=== PATIENT | female | born 1960 | race Caucasian/White ===

== ENCOUNTER → 2016-04-13 | Outpatient (CLI) | payer OTHER ==
--- NOTE | 2016-04-13 11:35 | BD ---
EXAMINATION TYPE: MG DEXA axial skeleton. DATE OF EXAM: 04/13/2016 11:12 AM COMPARISON: NONE CLINICAL HISTORY: Postmenopausal female Height: 65 IN Weight: 127 LBS FRAX RISK QUESTIONS: Alcohol (3 or more units per day): NO Family History (Parent hip fracture): NO Glucocorticoids (More than 3mos): NO (Ex: prednisone, prednisolone, methylprednisolone, dexamethasone, and hydrocortisone). History of Fracture in Adulthood: NO Secondary Osteoporosis: 1. Type 1 Diabetes: NO 2. Hyperthyroidism: NO 3. Menopause before 45: YES AGE 43 4. Malnutrition: NO 5. Chronic liver disease: NO Rheumatoid Arthritis: NO Current Tobacco Use: YES RISK FACTORS HISTORY OF: Active: YES Diet low in dairy products/other sources of calcium: YES Postmenopausal woman: AGE 43 Take estrogen and/or progesterone medications: NOT NOW How long: CONTROL AGE 15 - 38 MEDICATIONS: Additional Medications: LISINIPRIL, EFFEXOR,FIBER, Additional History: BREAST CANCER WITH CHEMO EXAM MEASUREMENTS: Bone mineral densitometry was performed using the [employer] System. Bone mineral density as measured about the Lumbar spine is: ----- L1-L4(G/cm2): 0.984 T Score Values are as follows: ----- L2: -2.0 ----- L3: -1.6 ----- L4: -1.4 ----- L1-L4: -1.6 Bone mineral density has: Decreased -11.6% since study of: 07/21/2004 Bone mineral density about the R hip (g/cm2): 0.893 Bone mineral density about the L hip (g/cm2): 0.947 T Score values are as follows: -----R Neck: -1.0 -----L Neck: -0.7 -----R Intertrochanter: -2.0 -----L Intertrochanter: -2.1 Bone mineral density has: Decreased -15.7% since study of: 07/21/2004 IMPRESSION: Osteopenia (T Score between -2.5 and -1 as noted by T score values There is slightly increased risk of fracture and the patient may be considered for treatment. Re-Screen 1-2 years. NOTE: T-SCORE=SD OF THE YOUNG ADULT MEAN.
--- NOTE | 2016-04-13 13:40 | MM ---
Reason for exam: history of breast cancer, mastectomy. Last mammogram was performed 1 year and 9 months ago. History: Patient is postmenopausal and has history of breast cancer at age 39. Malignant excisional biopsy of the right breast, February 18, 2000. Silicone gel implants in both breasts, 2000. Core biopsy of the right breast. Mastectomy of the right breast. Chemotherapy. Took tamoxifen for 3 years 6 months beginning at age 39. Physical Findings: Nurse did not find any significant physical abnormalities on exam. MG 3D Diag Mammo W/Cad LT CC, MLO, and ID view(s) were taken of the left breast. Prior study comparison: July 17, 2014, left breast MG diagnostic mammo LT w CAD. March 12, 2013, left diagnostic mammogram w/CAD. November 23, 2010, left diagnostic mammogram w/CAD. There are scattered fibroglandular densities. No significant new findings when compared with previous films. These results were verbally communicated with the patient and result sheet given to the patient on 04/13/16. ASSESSMENT: Benign, BI-RAD 2 RECOMMENDATION: Follow-up diagnostic mammogram of the left breast in 1 year.
== END | disposition home or self-care (01) ==
LOC: RADMAMWWP 09:51
PROVIDERS: ATTEND Internal Medicine Hematology & Oncology
DX: M85.80 Other specified disorders of bone density and structure, unspecified site (principal); N95.1 Menopausal and female climacteric states; Z78.0 Asymptomatic menopausal state; Z85.3 Personal history of malignant neoplasm of breast
CPT/HCPCS: 77080; G0206; G0279

== ENCOUNTER → 2017-08-01 | Outpatient (CLI) | payer OTHER ==
--- NOTE | 2017-08-02 07:52 | MM ---
Reason for exam: additional evaluation requested from prior study. Last mammogram was performed 1 year and 4 months ago. History: Patient is postmenopausal and has history of breast cancer at age 39. Malignant excisional biopsy of the right breast, February 18, 2000. Silicone gel implants in both breasts, 2000. Core biopsy of the right breast. Mastectomy of the right breast. Chemotherapy. Took tamoxifen for 3 years 6 months beginning at age 39. Physical Findings: Nurse did not find any significant physical abnormalities on exam. MG 3D Diag Mammo Imp W/Cad LT CC, MLO, and ID view(s) were taken of the left breast. Prior study comparison: April 13, 2016, left breast MG 3d diag mammo imp w/cad LT. July 17, 2014, left breast MG diagnostic mammo LT w CAD. The breast tissue is heterogeneously dense. This may lower the sensitivity of mammography. Retropectoral silicone implant. No significant new findings when compared with previous films. These results were verbally communicated with the patient and result sheet given to the patient on 08/01/17. ASSESSMENT: Negative, BI-RAD 1 RECOMMENDATION: Follow-up diagnostic mammogram of the left breast in 1 year.
== END | disposition home or self-care (01) ==
LOC: RADMAMWWP 15:06
PROVIDERS: ATTEND Internal Medicine Hematology & Oncology
DX: Z08 Encounter for follow-up examination after completed treatment for malignant neoplasm (principal); Z85.3 Personal history of malignant neoplasm of breast
CPT/HCPCS: 77061; 77065

== ENCOUNTER → 2018-05-17 | Outpatient (CLI) | payer OTHER ==
--- NOTE | 2018-05-30 09:02 | HM ---
HOLTER MONITOR REPORT Patient in her diary did not have any significant symptoms of palpitations. She had some chest tightness, pressure and difficulty breathing. Heart rate ranged from 50 to 160 beats per minute with average heart rate of 82 beats per minute. Predominant rhythm appears to be atrial fibrillation with a variable rate with underlying IVCD-type picture. There was a lot of artifact noted. There is no evidence of any significant bradyarrhythmia. Isolated PVCs were also noted. There was also some occasional ventricular couplets noted as well. FINAL IMPRESSION: Predominant rhythm with atrial FIB with a average rate of 82 beats per minute but heart rate ranged from 50 to 160 beats per minute with isolated premature ventricular contractions and occasional couplets. No evidence of any wide QRS tachycardia. No evidence of any significant pauses. MMODL / IJN: [id number] /
== END ==
LOC: RADECHMAIN 12:02
PROVIDERS: ATTEND Family Medicine
DX: I48.91 Unspecified atrial fibrillation (principal); I49.3 Ventricular premature depolarization
CPT/HCPCS: 93225; 93226

== ENCOUNTER → 2018-12-28 | Outpatient (CLI) | payer OTHER ==
--- NOTE | 2018-12-28 11:58 | MM ---
Reason for exam: additional evaluation requested from abnormal screening. Last mammogram was performed 1 year and 5 months ago. History: Patient is postmenopausal and has history of breast cancer at age 39. Malignant excisional biopsy of the right breast, February 18, 2000. Silicone gel implants in both breasts, 2000. Core biopsy of the right breast. Mastectomy of the right breast. Chemotherapy. Took tamoxifen for 3 years 6 months beginning at age 39. Physical Findings: Nurse did not find any significant physical abnormalities on exam. MG 3D Diag Mammo Imp W/Cad LT CC, MLO, and ID view(s) were taken of the left breast. Prior study comparison: August 01, 2017, left breast MG 3d diag mammo imp w/cad LT. April 13, 2016, left breast MG 3d diag mammo imp w/cad LT. There are scattered fibroglandular densities. There is no discrete abnormality. Implant is intact. No significant new findings when compared with previous films. These results were verbally communicated with the patient and result sheet given to the patient on 12/28/18. ASSESSMENT: Negative, BI-RAD 1 RECOMMENDATION: Follow-up diagnostic mammogram of the left breast in 1 year.
--- NOTE | 2018-12-29 07:18 | BD ---
EXAMINATION TYPE: Axial Bone Density DATE OF EXAM: 12/28/2018 COMPARISON: 2017 CLINICAL HISTORY: N 95.1 Height: 5 FT 4IN Weight: 134 FRAX RISK QUESTIONS: History of Fracture in Adulthood: YES Secondary Osteoporosis: 3. Menopause before 45: YES Current Tobacco Use: QUIT 6 WEEKS AGO RISK FACTORS HISTORY OF: Active: YES Postmenopausal woman: AGE 43 CHEMO INDUCED MEDICATIONS: Additional Medications: METOPROLOL, LISINOPRIL, EFFEXOR, WARFARIN Additional History: PT HAD BREAST CANCER AGE CHEMO, IS HAVING OPEN HEART SURG. REPLACING MITRAL VALVE EXAM MEASUREMENTS: Bone mineral densitometry was performed using the [employer] System. Bone mineral density as measured about the Lumbar spine is: ----- L1-L4(G/cm2): 0.982 T Score Values are as follows: ----- L2: -1.7 ----- L3: -1.5 ----- L4: -2.0 ----- L1-L4: -1.6 Bone mineral density has: DECREASED -1.5 % since study of: 2016 Bone mineral density about the R hip (g/cm2): 0.868 Bone mineral density about the L hip (g/cm2): 0.890 T Score values are as follows: -----R Neck: -1.2 -----L Neck: -1.1 -----R Total: -1.8 -----L Total: -1.8 Bone mineral density has: DECREASED -4.0 % since study of: 2016 IMPRESSION: Osteopenia (T Score between -2.5 and -1). There is slightly increased risk of fracture and the patient may be considered for treatment. Re-Screen 2-5 years. NOTE: T-SCORE=SD OF THE YOUNG ADULT MEAN.
== END | disposition home or self-care (01) ==
LOC: RADMAMWWP 10:25
PROVIDERS: ATTEND Internal Medicine Hematology & Oncology
DX: Z08 Encounter for follow-up examination after completed treatment for malignant neoplasm (principal); M85.88 Other specified disorders of bone density and structure, other site; Z78.0 Asymptomatic menopausal state; Z85.3 Personal history of malignant neoplasm of breast
CPT/HCPCS: 77061; 77065; 77080

== ENCOUNTER → 2022-07-08 | Outpatient (CLI) | payer OTHER ==
--- NOTE | 2022-07-08 20:05 | BD ---
EXAMINATION TYPE: Axial Bone Density DATE OF EXAM: 07/08/2022 CLINICAL HISTORY: 62 years old Female. ICD-10 CODE: Z13.820 SCREENING FOR OSTEOPOROSIS Nuclear Medicine Study in the last 2 weeks: No Barium Study in the last week: No : No Height: 65" Weight: 125.8 lbs FRAX RISK QUESTIONS: Alcohol (3 or more units per day): No Family History (Parent hip fracture): No Glucocorticoids (More than 3mos): No (Ex: prednisone, prednisolone, methylprednisolone, dexamethasone, and hydrocortisone). History of Fracture in Adulthood: Right little toe, right rib Secondary Osteoporosis: 1. Type 1 Diabetes: No 2. Hyperthyroidism: No 3. Menopause before 45: Yes, 38 4. Malnutrition: No 5. Chronic liver disease: No Rheumatoid Arthritis: No Current Tobacco Use: No RISK FACTORS HISTORY OF: Hip Fracture (Right/Left): No Spine Fracture: No History of Wrist Fracture: No Surgery to Spine/Hip(right/left)/Wrist (right/left): No Family History of Osteoporosis: No Active: Yes Diet low in dairy products/other sources of calcium: No Postmenopausal woman: No Lost more than 2 inches in height since high school: No Frequent falls: No Poor Health: No Hyperparathyroidism: No Adrenal Insufficiency: No MEDICATIONS: Prednisone or other steroids: No Thyroid Medications: No Osteoporosis Medications: No Additional Medications: Fiber gummies, baby aspirin, lisinopril, heart/blood pressure meds, Effexor, vitamin D Additional History: Hx of breast cancer 2000, open heart sx 2003, hysterectomy 2004 EXAM MEASUREMENTS: Bone mineral densitometry was performed using the [employer] System. Bone mineral density as measured about the Lumbar spine is: ----- L1-L4(G/cm2): 0.899 T Score Values are as follows: ----- L1: -2.6 ----- L2: -2.9 ----- L3: -2.4 ----- L4: -1.6 ----- L1-L4: -2.3 Z Score Values are as follows: ----- L1: -1.1 ----- L2: -1.4 ----- L3: -1.0 ----- L4: -0.2 ----- L1-L4: -0.9 Bone mineral density has: decreased -8.5% since study of: 12/28/2018 Bone mineral density about the R hip (g/cm2): 0.744 Bone mineral density about the L hip (g/cm2): 0.782 T Score values are as follows: -----R Neck: -1.6 -----L Neck: -1.0 -----R Total: -2.1 -----L Total: -1.8 Z Score values are as follows: -----R Neck: -0.2 -----L Neck: 0.4 -----R Total: -1.0 -----L Total: -0.7 Bone mineral density has: decreased -1.9% since study of: 12/28/2018 FRAX%s: The graph provided illustrates a 13.0% chance for a major osteoporotic fx and a 1.4% chance f or the hips probability for fx in 10 years time. IMPRESSION: Osteopenia (T Score between -2.5 and -1). There is slightly increased risk of fracture and the patient may be considered for treatment. Re-Screen 2-5 years. NOTE: T-SCORE=SD OF THE YOUNG ADULT MEAN.
--- NOTE | 2022-07-09 19:14 | MM ---
Reason for Exam: Hx of breast augmentation, asymptomatic. Last mammogram was performed 3 year(s) and 6 month(s) ago. Patient History: Menarche at age 15. First Full-Term at age 31. Left ovary removed at age 44. Right ovary removed at age 44. Hysterectomy at age 44. Postmenopausal. Breast cancer, age 39. Previous chemotherapy at age 39. Tamoxifen for 3 years, 6 months, from age 39 until age 43. Mastectomy on the Right side. Core Biopsy on the Right side. 02/18/2000, Malignant Excisional Biopsy on the right side. Chemotherapy. 2000, Bilateral Implants. Prior Study Comparison: 04/13/2016 Left Diagnostic Mammogram, [facility]. 08/01/2017 Left Diagnostic Mammogram, [facility]. 12/28/2018 Left Diagnostic Mammogram, [facility]. Tissue Density: There are scattered fibroglandular densities. Findings: Analyzed By CAD. Retropectoral silicone implant is noted. There is no suspicious group of microcalcifications or new suspicious mass in either breast. Overall Assessment: Negative, BI-RAD 1 Management: Screening Mammogram of the left breast in 1 year. . Patient should continue monthly self-breast exams. A clinical breast exam by your physician is recommended on an annual basis. This exam should not preclude additional follow-up of suspicious palpable abnormalities. Note on Francine scores and lifetime risk: 1. A Francine score greater than 3% is considered moderate risk. If this is the case, consider specialist referral to assess eligibility for a risk reducing agent. 2. If overall lifetime risk for the development of breast cancer is 20% or higher, the patient may qualify for future screening with alternating mammogram and breast MRI. Electronically signed and approved by: Emperatriz Barrera M.D. Radiologist
== END | disposition home or self-care (01) ==
LOC: RADMAMWWP 12:34
PROVIDERS: ATTEND Obstetrics & Gynecology
DX: Z12.31 Encounter for screening mammogram for malignant neoplasm of breast (principal); Z13.820 Encounter for screening for osteoporosis; M81.0 Age-related osteoporosis without current pathological fracture; M85.89 Other specified disorders of bone density and structure, multiple sites; Z85.3 Personal history of malignant neoplasm of breast
CPT/HCPCS: 77063; 77067; 77080

== ENCOUNTER → 2024-03-14 | Outpatient (CLI) | payer OTHER ==
--- NOTE | 2024-03-14 13:49 | CTL ---
EXAMINATION TYPE: CT Low Dose Lung DATE OF EXAM ORDERED: 03/14/2024 COMPARISON: None CLINICAL INDICATION: Female, 63 years old with history of Z12.2 SCR LUNG CA F17.210 CURRENT SMOKER Z1 2.31; [facility], former smoker, quit 5 years ago. smoked 1 PPD x30 years, Lung cancer screening, History of Smoking/tobacco use. TECHNIQUE: Low dose computed tomography scan was performed through the chest at 1 mm thick sections a nd reconstructed images in multiple planes at 1 mm and [address] DLP: 65.[address] CTDI: 1.8 mGy Automated exposure control for dose reduction was used. CT DIAGNOSTIC QUALITY: Satisfactory EXAMINATION TYPE: CT Low Dose Lung DATE OF EXAM ORDERED: 03/14/2024 HISTORY: Lung cancer screening CT DLP: 65.[address] CTDI: 1.8 mGy Automated exposure control for dose reduction was used. Comparison: None TECHNIQUE: Low dose computed tomography scan was performed through the chest at 1 mm thick sections a nd reconstructed images in multiple planes at 1 mm and [address] DIAGNOSTIC QUALITY: Satisfactory FINDINGS: There are mild emphysematous changes. There are scattered subcentimeter 3 mm nodules. There is no lung consolidation. There is mild interst itial density in the lingula indicating chronic interstitial changes. There is marked cardiomegaly. There is no mediastinal, hilar or axillary adenopathy. There is no pleural effusion, pleural thickening or pneumothorax. No focal osseous lesions are seen. Limited scans the upper abdomen reveals no gross abnormality IMPRESSION: 1. Lung rads Category 3, likely benign. Follow-up CT thorax in 6 months is recommended to confirm sta bility. 2. No acute cardiopulmonary disease. 3. Mild emphysematous changes. 4. Marked cardiomegaly. [facility], , 03/14/2024 1:47 PM
--- NOTE | 2024-03-14 14:58 | MM ---
Reason for Exam: Screening (asymptomatic). Last mammogram was performed 1 year(s) and 8 month(s) ago. Patient History: Menarche at age 15. First Full-Term at age 31. Left ovary removed at age 44. Right ovary removed at age 44. Hysterectomy at age 44. Postmenopausal. Breast cancer, right, age 39. Previous chemotherapy at age 39. Tamoxifen for 3 years, 6 months, from age 39 until age 43. Mastectomy on the Right side. Core Biopsy on the Right side. 02/18/2000, Malignant Excisional Biopsy on the right side. Chemotherapy. 2023, Implant on the left side. 2000, Bilateral Implants. Prior Study Comparison: 08/01/2017 Left Diagnostic Mammogram, [facility]. 12/28/2018 Left Diagnostic Mammogram, [facility]. 07/08/2022 Bilateral MG 3D screen mammo imp/cad., [facility]. Tissue Density: There are scattered areas of fibroglandular density. Findings: Analyzed By CAD. Left breast implants appear intact. Left breast: There is no suspicious group of microcalcifications or new suspicious mass. Overall Assessment: Negative, BI-RAD 1 Management: Screening Mammogram of both breasts in [address] [facility] will attempt to contact patient to return for supplemental views and ultrasound if indicated. Patient should continue monthly self-breast exams. A clinical breast exam by your physician is recommended on an annual basis. This exam should not preclude additional follow-up of suspicious palpable abnormalities. Note on Francine scores and lifetime risk: 1. A Francine score greater than 3% is considered moderate risk. If this is the case, consider specialist referral to assess eligibility for a risk reducing agent. 2. If overall lifetime risk for the development of breast cancer is 20% or higher, the patient may qualify for future screening with alternating mammogram and breast MRI. [facility], , 03/14/2024 2:55 PM. Electronically signed and approved by: Claude Coulter DO
== END | disposition home or self-care (01) ==
LOC: RADCTMAIN 11:13
PROVIDERS: ATTEND Family Medicine
DX: Z12.31 Encounter for screening mammogram for malignant neoplasm of breast (principal); Z12.2 Encounter for screening for malignant neoplasm of respiratory organs; J43.9 Emphysema, unspecified; R92.323 Mammographic fibroglandular density, bilateral breasts; I51.7 Cardiomegaly; Z98.82 Breast implant status; Z78.0 Asymptomatic menopausal state; Z85.3 Personal history of malignant neoplasm of breast; Z87.891 Personal history of nicotine dependence
CPT/HCPCS: 71271; 77063; 77067

== ENCOUNTER → 2024-04-25 | Outpatient (CLI) | payer OTHER ==
--- NOTE | 2024-04-25 08:38 | US ---
EXAMINATION TYPE: US carotid duplex BILAT DATE OF EXAM: 04/25/2024 COMPARISON: NONE CLINICAL INDICATION: Female, 63 years old with history of R47.1 DYSARTHRIA AND ANARTHRIA; dizziness Additional History: R42* Dizziness TECHNIQUE: Grayscale, color Doppler and spectral Doppler evaluation of the bilateral carotid systems and vertebral arteries. Indirect Doppler criteria was utilized. FINDINGS: EXAM MEASUREMENTS: RIGHT: Peak Systolic Velocity (PSV) cm/sec ----- Right CCA: 99.8 ----- Right ICA: 84.4 ----- Right ECA: 91.2 ICA/CCA ratio: 0.85 RIGHT: End Diastole cm/sec ----- Right CCA: 31.6 ----- Right ICA: 34.4 ----- Right ECA: 16.1 LEFT: Peak Systolic Velocity (PSV) cm/sec ----- Left CCA: 103 ----- Left ICA: 98.7 ----- Left ECA: 57.8 ICA/CCA ratio: 0.96 LEFT: End Diastole cm/sec ----- Left CCA: 38.3 ----- Left ICA: 31.2 ----- Left ECA: 10.1 VERTEBRALS (direction of flow): Right Vertebral: Antegrade Left Vertebral: Antegrade Rhythm: Normal DISC PAD GRINDER NOTES: Mild plaque bilateral bifurcations. no evidence of increased velocities Color Doppler imaging shows patency with blood flow throughout the carotid artery. Spectral waveforms are within normal limits. IMPRESSION: Right: Less than 50% stenosis of the carotid bifurcation. Left: Less than 50% stenosis of the carotid bifurcation. Criteria for Assigning % of Stenosis / Diameter reduction (Estimation based on the indirect measurements of the internal carotid artery velocities (ICA PSV). 1. Normal (no stenosis)=ICA PSV < 125 cm/s: ratio < 2.0: ICA EDV<40 cm/s. 2. Less than 50% stenosis=ICA PSV < 125 cm/s: ratio < 2.0: ICA EDV<40 cm/s. 3. 50 to 69% stenosis=ICA PSV of 125 to 230 cm/s: ration 2.0 ? 4.0: ICA EDV 40-100 cm/s. 4. Greater than 70% stenosis to near occlusion= ICA PSV > 230 cm/s: ratio > 4.0: ICA EDV > 100 cm/s. 5. Near occlusion= ICA PSV velocities may be low or undetectable: variable ratio and ICA EDV. 6. Total occlusion=unable to detect flow. [facility], , 04/25/2024 8:35 AM
== END | disposition home or self-care (01) ==
LOC: RADUSWWP 07:43
PROVIDERS: ATTEND Family Medicine
DX: I65.23 Occlusion and stenosis of bilateral carotid arteries (principal); R47.1 Dysarthria and anarthria
CPT/HCPCS: 93880

== ENCOUNTER 2024-05-03 16:36 | Observation (INO) | payer OTHER ==
[2024-05-03] MEDS ORDERED: NICOTINE GUM (POLACRILEX) 2 MG GUM BUCCAL PRN (18:00)
[2024-05-03 18:19] LABS: Basophils % (A) 0 %; Eosinophils # (A) 0.2 k/uL (0-0.7); Eosinophils % (A) 2 %; HCT 36.3 % (34.0-46.0); HGB 11.7 gm/dL (11.4-16.0); Lymphocytes # (A) 0.9 k/uL (1.0-4.8); Lymphocytes % (A) 8 %; MCH 30.8 pg (25.0-35.0); MCHC 32.2 g/dL (31.0-37.0); MCV 95.8 fL (80.0-100.0); Mean Platelet Volume 6.9; Monocytes # (A) 0.2 k/uL (0-1.0); Monocytes % (A) 2 %; Neutrophils # (A) 10.4 k/uL (1.3-7.7); Neutrophils % (A) 88 %; Platelet Count 223 k/uL (150-450); RBC 3.79 m/uL (3.80-5.40); RDW 13.2 % (11.5-15.5); WBC 11.8 k/uL (3.8-10.6)
[2024-05-03 18:29] LABS: ALT 55 U/L (4-34); AST 71 U/L (14-36); African American GFR (CKD) >90 (>60 ml/min/1.73 sqM); Alcohol <10 mg/dL; Alkaline Phosphatase 71 U/L (38-126); Anion Gap 9 mmol/L; Blood Urea Nitrogen 22 mg/dL (7-17); Calcium 8.8 mg/dL (8.4-10.2); Carbon Dioxide 23 mmol/L (22-30); Chloride 102 mmol/L (98-107); Glucose 83 mg/dL (74-99); Non-African American GFR(CKD) 80 (>60 ml/min/1.73 sqM); Potassium 4.3 mmol/L (3.5-5.1); Sodium 134 mmol/L (137-145); Total Bilirubin 0.7 mg/dL (0.2-1.3); Total Protein 6.5 g/dL (6.3-8.2)
[2024-05-03 18:29] LABS: Glucose,Whole Blood 81 mg/dL (70-110)
[2024-05-03] MEDS: SODIUM CHLORIDE 0.9% 500 ML 500 ML IV ONE (18:29)
[2024-05-03 18:31] LABS: Partial Thromboplastin Time 23.7 sec (22.0-30.0); Prothrombin Time 10.9 sec (10.0-12.5)
--- NOTE | 2024-05-03 18:57 | XR ---
EXAMINATION TYPE: XR chest 2V DATE OF EXAM: 05/03/2024 6:46 PM COMPARISON: 02/13/2013 CLINICAL INDICATION: Female, 63 years old with history of altered mental status: Shortness of breath TECHNIQUE: XR chest 2V views of the chest are obtained. FINDINGS: Scattered senescent parenchymal changes noted. Hyperinflation compatible with COPD. No evidence for infiltrate. No evidence for atelectasis. Cardiomegaly. Mediastinal structures are stable and grossly unremarkable. No evidence for hilar prominence. Degenerative changes dorsal spine. IMPRESSION: 1. No evidence for acute pulmonary disease. [facility], , 05/03/2024 6:54 PM
[2024-05-03 19:51] LABS: Appearance,Urine Clear (Clear); Bilirubin,Urine Negative (Negative); Blood,Urine Trace (Negative); Color,Urine Colorless; Glucose,Urine (UA) 4+ (Negative); Ketones,Urine Trace (Negative); Leukocyte Esterase,Urine Negative (Negative); Mucus,Urine Rare /hpf; Nitrite,Urine Negative (Negative); Protein,Urine Negative (Negative); RBC,Urine <1 /hpf (0-5); Specific Gravity,Urine 1.021 (1.001-1.035); Squamous Epithelial Cell,Urine 3 /hpf (0-4); Urobilinogen,Urine <2.0 mg/dL (<2.0); WBC,Urine 1 /hpf (0-5)
[2024-05-03 20:01] LABS: Amphetamine Screen,Urine Not Detected (NotDetected); Barbiturate Screen,Urine Not Detected (NotDetected); Benzodiazepines Screen,Urine Not Detected (NotDetected); Cocaine Screen,Urine Not Detected (NotDetected); Methadone Screen, Urine Not Detected (NotDetected); Opiate Screen,Urine Not Detected (NotDetected); Oxycodone Screen, Urine Not Detected (NotDetected); Phencyclidine Screen,Urine Not Detected (NotDetected); Tricyclic Antidepressant,Urine Not Detected (NotDetected); Urn Cannabinoid Scrn Detected (NotDetected)
--- NOTE | 2024-05-03 20:48 | ED ---
Altered Mental Status HPI - General Chief Complaint: Altered Mental Status Stated Complaint: AMS Time Seen by Provider: 05/03/24 16:44 Source: EMS Mode of arrival: EMS - History of Present Illness Initial Comments: 63-year-old female with past medical history of A-fib, heart failure, breast cancer in the remote past who presents to the emergency department with an epis ode of altered mental status. Her family is at bedside and helps provide the history. States that today the patient had a 1.5-hour period where she was extremely confused. Patient states that she does remember speaking to her however does not remember much after this. She does not remember EMS coming to the house. reports that she had expressive aphasia to where she was nonsensical. Upon my evaluation the patient is alert and oriented. Denies any complaints at this time. Admits that she does not remember what happened over a several hour time span. Also admits that this is the fourth time that this has happened in the past couple of weeks. She denies history of stroke. Admits to mild headache. No fevers. No head injuries. Patient does take Xarelto and has been compliant with her medication. She denies any chest pain. No other alleviating, precipitating or modifying factors - Related Data Home Medications Medication Instructions Recorded Confirmed Calcium Carbonate [Calcium] 600 mg PO HS 05/03/24 05/03/24 Empagliflozin [Jardiance] 10 mg PO DAILY 05/03/24 05/03/24 Inulin/Chromium Picolinate [Fiber 1 tab PO DAILY 05/03/24 05/03/24 Gummies Chew] Rivaroxaban [Xarelto] 15 mg PO HS 05/03/24 05/03/24 Sacubitril/Valsartan [Entresto 24 1 tab PO BID 05/03/24 05/03/24 mg-26 mg Tablet] Sotalol [Betapace] 80 mg PO BID 05/03/24 05/03/24 Spironolactone [Aldactone] 25 mg PO DAILY 05/03/24 05/03/24 Venlafaxine HCl [Effexor XR] 75 mg PO DAILY 05/03/24 05/03/24 Allergies Allergy/AdvReac Type Severity Reaction Status Date / Time acetaminophen AdvReac Unknown Verified 05/03/24 19:42 [From Darvocet-N] ibuprofen AdvReac Nausea & Verified 05/03/24 19:42 Vomiting propoxyphene AdvReac Unknown Verified 05/03/24 19:42 [From Dane-N] Review of Systems ROS Statement: Those systems with pertinent positive or pertinent negative responses have been documented in the HPI. ROS Other: All systems not noted in ROS Statement are negative. Past Medical History Past Medical History: Atrial Fibrillation Additional Past Medical History / Comment(s): Breast cancer, open heart, and defibrillator History of Any Multi-Drug Resistant Organisms: None Reported Past Surgical History: Hysterectomy Additional Past Surgical History / Comment(s): Open heart surgery Past Psychological History: No Psychological Hx Reported Smoking Status: Vaper Past Alcohol Use History: Occasional Past Drug Use History: Marijuana General Exam General appearance: alert, in no apparent distress Head exam: Present: atraumatic, normocephalic, normal inspection Eye exam: Present: normal appearance, PERRL, EOMI. Absent: scleral icterus, conjunctival injection, periorbital swelling ENT exam: Present: normal exam, mucous membranes moist Neck exam: Present: normal inspection. Absent: tenderness, meningismus, lymphad enopathy Respiratory exam: Present: normal lung sounds bilaterally. Absent: respiratory distress, wheezes, rales, rhonchi, stridor Cardiovascular Exam: Present: regular rate, normal rhythm, normal heart sounds. Absent: systolic murmur, diastolic murmur, rubs, gallop, clicks GI/Abdominal exam: Present: soft, normal bowel sounds. Absent: distended, tenderness, guarding, rebound, rigid Extremities exam: Present: normal inspection, full ROM, normal capillary refill. Absent: tenderness, pedal edema, joint swelling, calf tenderness Back exam: Present: normal inspection Neurological exam: Present: alert, oriented X3, CN II-XII intact Psychiatric exam: Present: normal affect, normal mood Skin exam: Present: warm, dry, intact, normal color. Absent: rash Course Vital Signs 05/03/24 05/03/24 05/03/24 16:39 18:33 20:05 Temperature 98.8 F 98.4 F Pulse Rate 78 77 77 Respiratory 18 18 16 Rate Blood Pressure 98/67 114/72 105/68 O2 Sat by Pulse 97 99 99 Oximetry Medical Decision Making - Medical Decision Making Was pt. sent in by a medical professional or institution (Dr., PA, BONDING SUPERVISOR, urgent care, hospital, or penitentiary...) When possible be specific @ -No Did you speak to anyone other than the patient for history (EMS, parent, family, police, friend...)? What history was obtained from this source @ -Spoke with EMS and family for history Did you review nursing and triage notes (agree or disagree)? Why? @ -I reviewed and agree with nursing and triage notes Were old charts reviewed (outside hosp., previous admission, EMS record, old EKG, old radiological studies, urgent care reports/EKG's, penitentiary records)? Report findings @ -No old charts were reviewed Differential Diagnosis (chest pain, altered mental status, abdominal pain women, abdominal pain men, vaginal bleeding, weakness, fever, dyspnea, syncope, headache, dizziness, GI bleed, back pain, seizure, CVA, palpatations, mental health, musculoskeletal)? @ -Differential Altered Mental Status: Hypoglycemia, DKA, hypercapnia, ETOH, overdose, CO poisoning, trauma, myxedema coma, HTN encephalopathy, infection, encephalitis, psychosis, intercranial hemorrhage, hepatic encephalopathy, meningitis, CVA, this is not meant to be an all-inclusive list EKG interpreted by me (3pts min.). @ -Yes and demonstrates sinus rhythm with a rate of 76. QRS 123. QTc of 444. No acute ST segment elevations. Mild ST depression V4 through V6 X-rays interpreted by me (1pt min.). @ -Yes and demonstrates no acute process CT interpreted by me (1pt min.). @ -Yes and demonstrates no acute process U/S interpreted by me (1pt. min.). @ -None done What testing was considered but not performed or refused? (CT, X-rays, U/S, labs)? Why? @ -None What meds were considered but not given or refused? Why? @ -None Did you discuss the management of the patient with other professionals (professionals i.e. BRYCE Martinez, BONDING SUPERVISOR, lab, RT, psych nurse, social human services assistants, duty engineer, teacher, first officer and flight instructor, case management social worker)? Give summary @ -Spoke with Dr. Rachel for the admission Was smoking cessation discussed for >3mins.? @ -No Was critical care preformed (if so, how long)? @ -No Were there social determinants of health that impacted care today? How? (Homelessness, low income, unemployed, alcoholism, drug addiction, trans portation, low edu. Level, literacy, decrease access to med. care, snf, rehab)? @ -No Was there de-escalation of care discussed even if they declined (Discuss DNR or withdrawal of care, Hospice)? DNR status @ -No What co-morbidities impacted this encounter? (DM, HTN, Smoking, COPD, CAD, Cancer, CVA, ARF, Chemo, Hep., AIDS, mental health diagnosis, sleep apnea, morbid obesity)? @ -Breast cancer, A-fib, mitral valve replacement Was patient admitted / discharged? Hospital course, mention meds given and route, prescriptions, significant lab abnormalities, going to OR and other pertinent info. @ -Upon arrival patient seen and evaluated in hallway 11. Thorough history and physical exam was performed. IV access was established and laboratory studies are conducted. Patient has complete return back to her baseline and therefore code stroke was not activated. Laboratory studies are reviewed. Patient does go for CT and CTA. Results are discussed with the patient. I did recommend admission as the patient has had 4 episodes similar in nature. I ordered an EEG echo. Spoke with Dr. Rachel for the admission. Neurology will be placed on consult Undiagnosed new problem with uncertain prognosis? @ -No Drug Therapy requiring intensive monitoring for toxicity (Heparin, Nitro, Insulin, Cardizem)? @ -No Were any procedures done? @ -No Diagnosis/symptom? @ -Acute transient encephalopathy, possible TIA Acute, or Chronic, or Acute on Chronic? @ -Acute Uncomplicated (without systemic symptoms) or Complicated (systemic symptoms)? @ -Complicated Side effects of treatment? @ -No Exacerbation, Progression, or Severe Exacerbation? @ -No Poses a threat to life or bodily function? How? (Chest pain, USA, SC, pneumonia, PE, COPD, DKA, ARF, appy, cholecystitis, CVA, Diverticulitis, Homicidal, Suicidal, threat to staff... and all critical care pts) @ -No - Lab Data Result diagrams: 05/03/24 18:07 05/03/24 18:07 Lab Results 05/03/24 05/03/24 05/03/24 Range/Units 18:07 18:07 18:07 WBC 11.8 H (3.8-10.6) k/uL RBC 3.79 L (3.80-5.40) m/uL Hgb 11.7 (11.4-16.0) gm/dL Hct 36.3 (34.0-46.0) % MCV 95.8 (80.0-100.0) fL MCH 30.8 (25.0-35.0) pg MCHC 32.2 (31.0-37.0) g/dL RDW 13.2 (11.5-15.5) % Plt Count 223 (150-450) k/uL MPV 6.9 Neutrophils % 88 % Lymphocytes % 8 % Monocytes % 2 % Eosinophils % 2 % Basophils % 0 % Neutrophils # 10.4 H (1.3-7.7) k/uL Lymphocytes # 0.9 L (1.0-4.8) k/uL Monocytes # 0.2 (0-1.0) k/uL Eosinophils # 0.2 (0-0.7) k/uL Basophils # 0.0 (0-0.2) k/uL PT 10.9 (10.0-12.5) sec INR 1.0 (<1.2) APTT 23.7 (22.0-30.0) sec Sodium 134 L (137-145) mmol/L Potassium 4.3 (3.5-5.1) mmol/L Chloride 102 (98-107) mmol/L Carbon Dioxide 23 (22-30) mmol/L Anion Gap 9 mmol/L BUN 22 H (7-17) mg/dL Creatinine 0.80 (0.52-1.04) mg/dL Est GFR (CKD-EPI)AfAm >90 (>60 ml/min/1.73 sqM) Est GFR (CKD-EPI)NonAf 80 (>60 ml/min/1.73 sqM) Glucose 83 (74-99) mg/dL POC Glucose (mg/dL) (70-110) mg/dL POC Glu Accounting Office Manager ID Calcium 8.8 (8.4-10.2) mg/dL Total Bilirubin 0.7 (0.2-1.3) mg/dL AST 71 H (14-36) U/L ALT 55 H (4-34) U/L Alkaline Phosphatase 71 (38-126) U/L Ammonia (<30) umol/L Troponin I (0.000-0.034) ng/mL Total Protein 6.5 (6.3-8.2) g/dL Albumin 4.0 (3.5-5.0) g/dL Urine Color Urine Appearance (Clear) Urine pH (5.0-8.0) Ur Specific [place] (1.001-1.035) Urine Protein (Negative) Urine Glucose (UA) (Negative) Urine Ketones (Negative) Urine Blood (Negative) Urine Nitrite (Negative) Urine Bilirubin (Negative) Urine Urobilinogen (<2.0) mg/dL Ur Leukocyte Esterase (Negative) Urine RBC (0-5) /hpf Urine WBC (0-5) /hpf Ur Squamous Epith Cells (0-4) /hpf Urine Mucus (None) /hpf Urine Opiates Screen (NotDetected) Ur Oxycodone Screen (NotDetected) Urine Methadone Screen (NotDetected) Ur Barbiturates Screen (NotDetected) U Tricyclic Antidepress (NotDetected) Ur Phencyclidine Scrn (NotDetected) Ur Amphetamines Screen (NotDetected) U Methamphetamines Scrn (NotDetected) U Benzodiazepines Scrn (NotDetected) Urine Cocaine Screen (NotDetected) U Marijuana (THC) Screen (NotDetected) Serum Alcohol <10 mg/dL 05/03/24 05/03/24 05/03/24 Range/Units 18:07 18:07 18:27 WBC (3.8-10.6) k/uL RBC (3.80-5.40) m/uL Hgb (11.4-16.0) gm/dL Hct (34.0-46.0) % MCV (80.0-100.0) fL MCH (25.0-35.0) pg MCHC (31.0-37.0) g/dL RDW (11.5-15.5) % Plt Count (150-450) k/uL MPV Neutrophils % % Lymphocytes % % Monocytes % % Eosinophils % % Basophils % % Neutrophils # (1.3-7.7) k/uL Lymphocytes # (1.0-4.8) k/uL Monocytes # (0-1.0) k/uL Eosinophils # (0-0.7) k/uL Basophils # (0-0.2) k/uL PT (10.0-12.5) sec INR (<1.2) APTT (22.0-30.0) sec Sodium (137-145) mmol/L Potassium (3.5-5.1) mmol/L Chloride (98-107) mmol/L Carbon Dioxide (22-30) mmol/L Anion Gap mmol/L BUN (7-17) mg/dL Creatinine (0.52-1.04) mg/dL Est GFR (CKD-EPI)AfAm (>60 ml/min/1.73 sqM) Est GFR (CKD-EPI)NonAf (>60 ml/min/1.73 sqM) Glucose (74-99) mg/dL POC Glucose (mg/dL) 81 (70-110) mg/dL POC Glu Accounting Office Manager ID Marty Stout Calcium (8.4-10.2) mg/dL Total Bilirubin (0.2-1.3) mg/dL AST (14-36) U/L ALT (4-34) U/L Alkaline Phosphatase (38-126) U/L Ammonia <9 (<30) umol/L Troponin I <0.012 (0.000-0.034) ng/mL Total Protein (6.3-8.2) g/dL Albumin (3.5-5.0) g/dL Urine Color Urine Appearance (Clear) Urine pH (5.0-8.0) Ur Specific [place] (1.001-1.035) Urine Protein (Negative) Urine Glucose (UA) (Negative) Urine Ketones (Negative) Urine Blood (Negative) Urine Nitrite (Negative) Urine Bilirubin (Negative) Urine Urobilinogen (<2.0) mg/dL Ur Leukocyte Esterase (Negative) Urine RBC (0-5) /hpf Urine WBC (0-5) /hpf Ur Squamous Epith Cells (0-4) /hpf Urine Mucus (None) /hpf Urine Opiates Screen (NotDetected) Ur Oxycodone Screen (NotDetected) Urine Methadone Screen (NotDetected) Ur Barbiturates Screen (NotDetected) U Tricyclic Antidepress (NotDetected) Ur Phencyclidine Scrn (NotDetected) Ur Amphetamines Screen (NotDetected) U Methamphetamines Scrn (NotDetected) U Benzodiazepines Scrn (NotDetected) Urine Cocaine Screen (NotDetected) U Marijuana (THC) Screen (NotDetected) Serum Alcohol mg/dL 05/03/24 Range/Units 19:25 WBC (3.8-10.6) k/uL RBC (3.80-5.40) m/uL Hgb (11.4-16.0) gm/dL Hct (34.0-46.0) % MCV (80.0-100.0) fL MCH (25.0-35.0) pg MCHC (31.0-37.0) g/dL RDW (11.5-15.5) % Plt Count (150-450) k/uL MPV Neutrophils % % Lymphocytes % % Monocytes % % Eosinophils % % Basophils % % Neutrophils # (1.3-7.7) k/uL Lymphocytes # (1.0-4.8) k/uL Monocytes # (0-1.0) k/uL Eosinophils # (0-0.7) k/uL Basophils # (0-0.2) k/uL PT (10.0-12.5) sec INR (<1.2) APTT (22.0-30.0) sec Sodium (137-145) mmol/L Potassium (3.5-5.1) mmol/L Chloride (98-107) mmol/L Carbon Dioxide (22-30) mmol/L Anion Gap mmol/L BUN (7-17) mg/dL Creatinine (0.52-1.04) mg/dL Est GFR (CKD-EPI)AfAm (>60 ml/min/1.73 sqM) Est GFR (CKD-EPI)NonAf (>60 ml/min/1.73 sqM) Glucose (74-99) mg/dL POC Glucose (mg/dL) (70-110) mg/dL POC Glu Accounting Office Manager ID Calcium (8.4-10.2) mg/dL Total Bilirubin (0.2-1.3) mg/dL AST (14-36) U/L ALT (4-34) U/L Alkaline Phosphatase (38-126) U/L Ammonia (<30) umol/L Troponin I (0.000-0.034) ng/mL Total Protein (6.3-8.2) g/dL Albumin (3.5-5.0) g/dL Urine Color Colorless Urine Appearance Clear (Clear) Urine pH 5.0 (5.0-8.0) Ur Specific [place] 1.021 (1.001-1.035) Urine Protein Negative (Negative) Urine Glucose (UA) 4+ H (Negative) Urine Ketones Trace H (Negative) Urine Blood Trace H (Negative) Urine Nitrite Negative (Negative) Urine Bilirubin Negative (Negative) Urine Urobilinogen <2.0 (<2.0) mg/dL Ur Leukocyte Esterase Negative (Negative) Urine RBC <1 (0-5) /hpf Urine WBC 1 (0-5) /hpf Ur Squamous Epith Cells 3 (0-4) /hpf Urine Mucus Rare H (None) /hpf Urine Opiates Screen Not Detected (NotDetected) Ur Oxycodone Screen Not Detected (NotDetected) Urine Methadone Screen Not Detected (NotDetected) Ur Barbiturates Screen Not Detected (NotDetected) U Tricyclic Antidepress Not Detected (NotDetected) Ur Phencyclidine Scrn Not Detected (NotDetected) Ur Amphetamines Screen Not Detected (NotDetected) U Methamphetamines Scrn Not Detected (NotDetected) U Benzodiazepines Scrn Not Detected (NotDetected) Urine Cocaine Screen Not Detected (NotDetected) U Marijuana (THC) Screen Detected H (NotDetected) Serum Alcohol mg/dL Disposition Clinical Impression: Encephalopathy acute, TIA (transient ischemic attack) Disposition: ADMITTED IP TO THIS [facility] Condition: Stable Is patient prescribed a controlled substance at d/c from ED?: No Time of Disposition: 22:12 Decision to Admit Reason: Admit from EC Decision Date: 05/03/24 Decision Time: 22:12
--- NOTE | 2024-05-03 21:34 | CT ---
EXAMINATION TYPE: CT brain wo con DATE OF EXAM: 05/03/2024 COMPARISON: None CLINICAL INDICATION: Female, 63 years old with history of expressive aphasia, resolved; PHH, AMS, +LO C. No known fall/injury MP TECHNIQUE: CT of the brain performed without contrast with sagittal and coronal reformats. CT DLP: 1116.[address] CTDI: mGy Automated exposure control for dose reduction was used. FINDINGS: There is no acute intracranial hemorrhage, mass effect, or midline shift identified. The ventricles and sulci are within normal limits in size. The globes are intact and the visualized sinuses are tiffanie ar. IMPRESSION: No acute intracranial hemorrhage, mass effect, or midline shift is seen. [facility], , 05/03/2024 9:32 PM
--- NOTE | 2024-05-03 21:40 | CT ---
EXAMINATION TYPE: CT angio head neck DATE OF EXAM: 05/03/2024 9:31 PM COMPARISON: None. CLINICAL INDICATION: Female, 63 years old with history of expressive aphasia, resolved, AMS, +LOC. No known fall/injury MP, TECHNIQUE: Axially acquired helical CT Angiogram of the Neck was obtained with and without contrast. Axial images are supplemented with coronal and sagittal MIP reconstructions. 3D reconstructions were also performed and were post-processed at an independent workstation. Estimated carotid stenosis was calculated using the NASCET criteria. Contrast CTA of the [place] was performed 3-D recons truction imaging obtained at a separate workstation. IV CONTRAST: without and with IV Contrast, patient injected with 65 mL of Isovue 370. (None if empty) CT DLP: 262.2 mGycm, Automated exposure control for dose reduction was used. FINDINGS: NECK: Right carotid system: Mild plaque is seen of the right common carotid artery. There is mild plaque a lso noted at the carotid bulb and proximal ICA. No significant diameter reduction. ECA is patent. Right vertebral artery appears unremarkable. Left carotid system: Mild plaque is seen of the left common carotid artery. There is mild plaque als o noted at the carotid bulb and proximal ICA. No significant diameter reduction. ECA is patent. Lef t vertebral artery appears unremarkable. BRAIN: Vertebrobasilar system as well as intracranial portions of the internal carotid arteries and their ma brad tributaries are patent. I do not see evidence for sizable aneurysm or vascular malformation. Pl ease note MRI provides greater sensitivity and specificity. Visualized brain appears grossly unremar kable. IMPRESSION: 1. No evidence for hemodynamically significant stenosis at the carotid bifurcations. No significant diameter reduction to account for the patient's symptoms. 2. No evidence for intracranial aneurysm or high-grade stenosis. [facility], , 05/03/2024 9:37 PM
[2024-05-03] MEDS ORDERED: NALOXONE 0.4 MG/ML 1 ML VIAL IV PRN (22:12)
--- NOTE | 2024-05-03 23:15 | P.HPIM ---
History of Present Illness H&P Date: 05/03/24 Chief Complaint: confusion 63 year old female with cardiomyopathy post ICD, afib on xarelto , h/o breast cancer 20 years ago Patient coming in today for evaluation of a sudden episode of confusion, describes that she did not look right however she was following commands when he notified EMS they gave him instructions of testing certain functions and she was following commands and doing them however she did not look right to him. Patient herself confirms that she has no recollection of this event however at this time during my interview she denies any focal neurodeficits. Patient reports that another episode happened about 6 weeks ago however that was brief only lasting 1 or 2 minutes compared to this time where it lasted over an hour. 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 All other systems were reviewed and are negative on exam Constitutional: No acute distress, conversant, pleasant Eyes: Anicteric sclerae, moist conjunctiva, Pupils equal round reactive to light ENMT: NC/AT Oropharynx clear, no erythema, or exudates Neck: Supple, no masses, or JVD No carotid bruits No thyromegaly Lungs: Clear to auscultation Clear to percussion Normal respiratory effort, no accessory muscle use Cardiovascular: Heart regular in rate and rhythm, No murmurs, gallops, or rubs No peripheral edema Abdominal: Soft Nontender, no guarding, rebound or rigidity Abdomen moving with respiration Normoactive bowel sounds Extremities: No digital cyanosis No clubbing Pedal pulses intact and symmetrical Radial pulses intact and symmetrical No calf tenderness Psychiatric: Alert and oriented to person, place and time Appropriate affect fair judgement Neuro Muscles Strength 5/5 in all 4 extremities Sensation to light touch grossly present throughout Cranial nerves II-XII grossly intact Past Medical History Past Medical History: Atrial Fibrillation Additional Past Medical History / Comment(s): Breast cancer, open heart, and defibrillator History of Any Multi-Drug Resistant Organisms: None Reported Past Surgical History: Hysterectomy Additional Past Surgical History / Comment(s): Open heart surgery Past Psychological History: No Psychological Hx Reported Smoking Status: Vaper Past Alcohol Use History: Occasional Past Drug Use History: Marijuana Medications and Allergies Home Medications Medication Instructions Recorded Confirmed Type Calcium Carbonate [Calcium] 600 mg PO HS 05/03/24 05/03/24 History Empagliflozin [Jardiance] 10 mg PO DAILY 05/03/24 05/03/24 History Inulin/Chromium Picolinate [Fiber 1 tab PO DAILY 05/03/24 05/03/24 History Gummies Chew] Rivaroxaban [Xarelto] 15 mg PO HS 05/03/24 05/03/24 History Sacubitril/Valsartan [Entresto 24 1 tab PO BID 05/03/24 05/03/24 History mg-26 mg Tablet] Sotalol [Betapace] 80 mg PO BID 05/03/24 05/03/24 History Spironolactone [Aldactone] 25 mg PO DAILY 05/03/24 05/03/24 History Venlafaxine HCl [Effexor XR] 75 mg PO DAILY 05/03/24 05/03/24 History Allergies Allergy/AdvReac Type Severity Reaction Status Date / Time acetaminophen AdvReac Unknown Verified 05/03/24 19:42 [From Darvocet-N] ibuprofen AdvReac Nausea & Verified 05/03/24 19:42 Vomiting propoxyphene AdvReac Unknown Verified 05/03/24 19:42 [From Darvocet-N] Physical Exam Vitals: Vital Signs Temp Pulse Resp BP Pulse Ox 05/03/24 20:05 98.4 F 77 16 105/68 99 05/03/24 18:33 77 18 114/72 99 05/03/24 16:39 98.8 F 78 18 98/67 97 Intake and Output 05/03/24 05/03/24 05/04/24 14:59 22:59 06:59 Other: Weight 54.431 kg Results CBC & Chem 7: 05/03/24 18:07 05/03/24 18:07 Labs: Abnormal Lab Results - Last 24 Hours (Table) 05/03/24 05/03/24 05/03/24 Range/Units 18:07 18:07 19:25 WBC 11.8 H (3.8-10.6) k/uL RBC 3.79 L (3.80-5.40) m/uL Neutrophils # 10.4 H (1.3-7.7) k/uL Lymphocytes # 0.9 L (1.0-4.8) k/uL Sodium 134 L (137-145) mmol/L BUN 22 H (7-17) mg/dL AST 71 H (14-36) U/L ALT 55 H (4-34) U/L Urine Glucose (UA) 4+ H (Negative) Urine Ketones Trace H (Negative) Urine Blood Trace H (Negative) Urine Mucus Rare H (None) /hpf U Marijuana (THC) Screen Detected H (NotDetected) Assessment and Plan Assessment: 63-year-old female A-fib on Xarelto, cardiomyopathy status post ICD history of breast cancer coming in for an episode of confusion I discussed case with ED doctor and accepted the admission for altered mental status to rule out underlying seizures versus stroke with anticipated length of stay less than 2 midnights Acute encephalopathy resolved Rule out stroke versus seizures CT of the brain and CT angio of the head and neck no acute pathology Continue with neurochecks Fall precautions Neurology evaluation Check EEG PT/OT evaluation Continue with aspirin and statin Check lipid panel Check echocardiogram Monitor vital signs Seizure precautions Urine drug screen positive for marijuana otherwise unremarkable Serum alcohol level negative Mild transaminitis AST 71 ALT 55 slightly elevated Total bilirubin 0.7 alkaline phosphatase 71 both unremarkable Hold statin Continue to monitor liver enzymes Chronic conditions Paroxysmal A-fib continue Xarelto History of valvular heart disease and cardiomyopathy continue home medication Blood work overall unremarkable showing white count of 11.8 afebrile, hemoglobin 11.7 platelet 223 INR of 1 Renal function unremarkable sodium 134 potassium 4.3 BUN 22 creatinine 0.8 Blood sugar was 81 unremarkable Urinalysis unremarkable with some trace ketones Full code DVT prophylaxis on Xarelto for A-fib GI prophylaxis Protonix 40 mg p.o. daily
[2024-05-03] MEDS: CALCIUM CARBONATE 500 MG CHEWABLE PO SCH (23:57)
[2024-05-04] MEDS: SACUBITRIL/VALSARTAN 24 MG-26 MG TABLET PO SCH (00:06)
[2024-05-04] MEDS: SOTALOL 80 MG TAB PO SCH (00:06)
[2024-05-04] MEDS: ASPIRIN 325 MG TAB PO STA (00:06)
[2024-05-04] MEDS: SODIUM CHLORIDE 0.9% 1,000 ML IV SCH (00:09)
[2024-05-04] MEDS: RIVAROXABAN 15 MG TAB PO SCH (01:33)
[2024-05-04 06:17] VITALS: TEMP 98.1
[2024-05-04 07:23] LABS: Basophils % (A) 0 %; Eosinophils # (A) 0.1 k/uL (0-0.7); Eosinophils % (A) 1 %; HCT 35.6 % (34.0-46.0); HGB 11.4 gm/dL (11.4-16.0); Hypochromasia Slight; Lymphocytes # (A) 1.5 k/uL (1.0-4.8); Lymphocytes % (A) 15 %; MCH 31.1 pg (25.0-35.0); MCHC 32.1 g/dL (31.0-37.0); MCV 96.9 fL (80.0-100.0); Monocytes # (A) 0.3 k/uL (0-1.0); Monocytes % (A) 3 %; Neutrophils # (A) 7.5 k/uL (1.3-7.7); Neutrophils % (A) 80 %; Platelet Count 228 k/uL (150-450); RBC 3.68 m/uL (3.80-5.40); RDW 13.3 % (11.5-15.5); WBC 9.4 k/uL (3.8-10.6)
[2024-05-04 07:53] LABS: African American GFR (CKD) >90 (>60 ml/min/1.73 sqM); Anion Gap 4 mmol/L; Blood Urea Nitrogen 21 mg/dL (7-17); Calcium 8.5 mg/dL (8.4-10.2); Carbon Dioxide 27 mmol/L (22-30); Chloride 104 mmol/L (98-107); Glucose 93 mg/dL (74-99); Non-African American GFR(CKD) 84 (>60 ml/min/1.73 sqM); Potassium 4.1 mmol/L (3.5-5.1); Sodium 135 mmol/L (137-145)
[2024-05-04] MEDS ORDERED: NON FORMULARY DRUG (Inulin/Chromium Picolinate [Fiber Gummies Chew] 1 EACH Tab.Chew) PO SCH (09:00)
[2024-05-04] MEDS: PANTOPRAZOLE 40 MG TABLET PO SCH (10:15)
[2024-05-04] MEDS: DAPAGLIFLOZIN PROPANEDIOL 5 MG TABLET PO SCH (10:16)
[2024-05-04] MEDS: SPIRONOLACTONE 25 MG TAB PO SCH (10:16)
[2024-05-04] MEDS: ASPIRIN 81 MG PO SCH (10:16)
[2024-05-04] MEDS: VENLAFAXINE HCL ER 75 MG CAP PO SCH (10:17)
[2024-05-04 10:25] LABS: Chol/HDL Ratio 4.37 Ratio; VLDL Calculation 19.12 mg/dL (5.00-40.00)
[2024-05-04] MEDS: levETIRAcetam IV 500 MG/5 ML VIAL IVP STA (14:00)
--- NOTE | 2024-05-04 15:45 | CA ---
Transthoracic Echo Report Name: Lily Martin Age: 63 Gender: F : 1960 Exam Date: 05/04/2024 10:53 Exam Location: [facility] Ht (in): 65 Wt (lb): 120 Ordering Physician: Lu Rebolledo DO Attending/Referring Phys: [id number], [employer] Kerri Alvares RDCS Procedure CPT: Indications: Thrombus Cardiac Hx: Technical Quality: Fair Contrast 1: Total Dose (mL): Contrast 2: Total Dose (mL): MEASUREMENTS (Male / Female) Normal Values 2D ECHO LV Diastolic Diameter PLAX 5.1 cm 4.2 - 5.9 / 3.9 - 5.3 cm LV Systolic Diameter PLAX 4.6 cm IVS Diastolic Thickness 1.2 cm 0.6 - 1.0 / 0.6 - 0.9 cm LVPW Diastolic Thickness 0.9 cm 0.6 - 1.0 / 0.6 - 0.9 cm LV Relative Wall Thickness 0.4 RV Internal Dim ED PLAX 3.8 cm LVOT Diameter 1.8 cm LV Diastolic Volume MOD 4C 167.0 cm??? LV Systolic Volume MOD 4C 98.6 cm??? LV Ejection Fraction MOD 4C 41.0 % LV Cardiac Index MOD 4C 2910.1 cm???/min???m??? LV Diastolic Length 4C 7.6 cm LV Systolic Length 4C 7.2 cm M-MODE Aortic Root Diameter MM 2.9 cm LA Systolic Diameter MM 5.4 cm LA Ao Ratio MM 1.8 AV Cusp Separation MM 2.1 cm DOPPLER LVOT Peak Velocity 92.4 cm/s LVOT Peak Gradient 3.4 mmHg LVOT Velocity Time Integral 19.0 cm LVOT Stroke Volume 48.5 cm??? LVOT Stroke Volume Index 30.4 ml/m??? LVOT Cardiac Index 2060.5 cm???/min???m??? MV Peak Velocity 197.7 cm/s MV Peak Gradient 15.6 mmHg MV Mean Velocity 99.3 cm/s MV Mean Gradient 4.8 mmHg MV Velocity Time Integral 35.1 cm MV Area PHT 2.1 cm??? Mitral E Point Velocity 170.3 cm/s Mitral A Point Velocity 2.0 cm/s Mitral E to A Ratio 86.1 MV Deceleration Time 365.8 ms TR Peak Velocity 261.3 cm/s TR Peak Gradient 27.3 mmHg FINDINGS Left Ventricle Mild concentric left ventricular hypertrophy.moderately reduced global left ventricular systolic function. Left ventricular ejection fraction is estimated at 35-40 %. Right Ventricle Mild right ventricular dilatation. Right ventricular systolic pressure within normal limits. Right Atrium Mild right atrial dilatation. Left Atrium Mild left atrial dilatation. Mitral Valve Mild to moderate prosthetic mitral valve regurgitation. prosthetic mitral valve appears to function normally. Aortic Valve Trileaflet aortic valve. No aortic valve stenosis or regurgitation. Tricuspid Valve Structurally normal tricuspid valve. Mild tricuspid regurgitation. Pulmonic Valve Structurally normal pulmonic valve. Pericardium No pericardial effusion. Aorta Normal size aortic root and proximal ascending aorta. CONCLUSIONS Left ventricle is at upper limits of normal there is mild concentric LVH. Global decrease in contractility estimate ejection fraction of about 40%. There is a bioprosthetic mitral valve with the struts appears to be stable with mild to moderate regurgitation. There is also mild tricuspid regurgitation no pericardial effusion. No significant pulmonary hypertension Previewed by: Dr. Nura Jalloh MD (Electronically Signed) Final Date: 04 May 2024 15:44
--- NOTE | 2024-05-04 16:08 | P.DS ---
Providers Date of admission: 05/03/24 22:16 Expected date of discharge: 05/04/24 Attending physician: Tarah Link MD Consults: 05/03/24 22:12 Consult Physician Urgent Consulting Provider: Yahaira Garza Consult Reason/Comments: transient encephalopathy, possible tia Do you want consulting provider notified?: Yes Primary care physician: Miller Topete Hospital Course: Discharge Diagnosis: New onset seizures, believed to be recurrent focal seizures per discussion with neurologist. Recurrent episodes of confusion/staring off, secondary to above Paroxysmal atrial fibrillation. Continue Xarelto 15 mg nightly, sotalol 80 mg twice daily.. 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 History of nonischemic cardiomyopathy status post AICD placement History of bioprosthetic mitral valve replacement Hospital Course: Patient is a pleasant 63-year-old female with a past medical history of nonischemic cardiomyopathy status post ICD placement, open heart surgery for bioprosthetic mitral valve replacement, paroxysmal atrial fibrillation on anticoagulation with Xarelto, and breast cancer currently in remission. She presented to the emergency department secondary to reports of intermittent episodes of confusion. Patient has been reportedly having episodes of intermittent confusion in which she is found to be staring off, remains awake and alert during this time but per at bedside not quite there. She underwent evaluation in the emergency department. Vital signs upon arrival show blood pressure 98/67, heart rate 78, respiratory rate 18, temp 98.8 F, and SpO2 of 97% on room air. EKG completed showing sinus mechanism with nonspecific T wave abnormalities in inferior lateral leads. No previous EKG available for comparison. Patient denied having any chest pain or shortness of breath. CT brain completed negative for acute intracranial hemorrhage, mass effect, or midline shift. CTA head and neck negative for acute intracranial process and showing no significant stenosis at carotid bifurcations. Labs completed and reviewed. CBC showing leukocytosis with WBC count of 11.8. BMP showing sodium 134 BUN of 22 otherwise normal findings. Blood glucose was 83. Liver profile showing elevated AST of 71 and ALT of 55 otherwise normal findings. Troponin was negative at less than 0.012. Urinalysis negative for infection. Urine drug screen positive for marijuana. Serum alcohol level less than 10. Patient admitted under services with consultation to neurology. She underwent an EEG. This report is not available but fully discussed with neurologist dating patient showing epileptiform/seizure activity concerning for focal seizures. Patient given loading dose of Keppra 1000 mg and started on Keppra 500 mg twice daily. Echocardiogram completed with EF of 40% bioprosthetic mitral valve in place reported to be stable with mild to moderate regurgitation, mild tricuspid regurgitation, and no pulmonary effusion. Patient was strongly advised to stay an additional 24 hours for close observation/monitoring but adamantly refusing stating she has a family that is a nurse and they will be watching her closely and will not stay another night in the hospital. Discussed with neurologist recommending discharge home on Keppra 500 mg twice daily. Patient being discharged at this time. She was informed of [place] state law stating no driving until seizure-free for 6 months. Patient to follow-up outpatient with PCP in 1 to 2 days and with neurologist in 1 to 2 weeks. Physical exam: Patient seen and examined at bedside. Vital signs reviewed and stable. General: Nontoxic, no distress and appears stated age. Derm: Skin warm and dry, normal coloration for ethnicity. Head: Atraumatic, normocephalic and symmetric. Eyes: EOM's intact, no lid lag, and anicteric sclera Mouth: no lip lesions, mucus membranes moist Cardiovascular: regular rate and rhythm with normal S1S2, systolic murmur, positive posterior tibial pulses bilaterally, and cap refill < 2 seconds. Lungs: Respirations even, regular, and unlabored on room air. Lungs CTA bilaterally, no rhonchi, no rales, no wheezing, and no accessory muscle usage. Abdominal: soft, nontender to palpation, no guarding, no appreciable organomegaly Ext: ROM intact. No gross muscle atrophy, no edema, no contractures Neuro: Speech clear, face symmetrical and CN II-XII grossly intact with no noted focal neuro deficits Psych: Alert and oriented to person, place, time, and situation. Appropriate and pleasant affect. A total of 35 minutes of time were spent preparing this complex discharge summary. Pt was discharged on 05/04/2024 at 4:03 PM. Patient was seen independently by Nurse Practitioner. This document was prepared using [employer] dictation software. Please allow for errors in custodial officer while rare they do occur. Connor Dominguez NP rendered care for this patient independently, reviewed the findings and plan as documented in the note above. I did not physically speak with or examine the patient on this date. Patient Condition at Discharge: Stable Plan - Discharge Summary New Discharge Prescriptions: New levETIRAcetam [Keppra] 500 mg PO Q12HR 90 Days #180 tab Continue Rivaroxaban [Xarelto] 15 mg PO HS Empagliflozin [Jardiance] 10 mg PO DAILY Venlafaxine HCl [Effexor XR] 75 mg PO DAILY Sotalol [Betapace] 80 mg PO BID Spironolactone [Aldactone] 25 mg PO DAILY Sacubitril/Valsartan [Entresto 24 mg-26 mg Tablet] 1 tab PO BID Calcium Carbonate [Calcium] 600 mg PO HS Inulin/Chromium Picolinate [Fiber Gummies Chew] 1 tab PO DAILY Discharge Medication List Calcium Carbonate [Calcium] 600 mg PO HS 05/03/24 [History] Empagliflozin [Jardiance] 10 mg PO DAILY 05/03/24 [History] Inulin/Chromium Picolinate [Fiber Gummies Chew] 1 tab PO DAILY 05/03/24 [History] Rivaroxaban [Xarelto] 15 mg PO HS 05/03/24 [History] Sacubitril/Valsartan [Entresto 24 mg-26 mg Tablet] 1 tab PO BID 05/03/24 [History] Sotalol [Betapace] 80 mg PO BID 05/03/24 [History] Spironolactone [Aldactone] 25 mg PO DAILY 05/03/24 [History] Venlafaxine HCl [Effexor XR] 75 mg PO DAILY 05/03/24 [History] levETIRAcetam [Keppra] 500 mg PO Q12HR 90 Days #180 tab 05/04/24 [Rx] Follow up Appointment(s)/Referral(s): Miller Topete MD [Primary Care Provider] - 1-2 days Urbano Cason MD [REFERRING] - 1 Week Patient Instructions/Handouts: Levetiracetam (By mouth), Recurrent Seizures in Adults (DC), New-Onset Seizure in Adults (ED) Activity/Diet/Wound Care/Special Instructions: Activity: As tolerated. Take breaks as needed. Diet: Heart healthy and carb consistent diet. Avoid salts, or foods with hidden salts such as canned or boxed foods and frozen dinners. Extra salt makes your heart work harder and traps the fluid in your body for longer. Special Instructions: Take all of your medications as directed and remember to keep all of your doctor's appointments and follow-up as needed. [place] state law staties no driving until seizure free for 6 months. It is also important to avoid climbing ladders, operating dangerous or heavy machinery or unsupervised swimming until seizure free for 6 months. It is highly recommended you stay an additional day for observation as discussed with you at bedside, however secondary to your persistent request for discharge it was discussed with neurologist and you are being discharged home on Keppra 500 mg twice daily. Please call and schedule appointment first thing Tuesday morning to see your PCP, Dr. Topete and schedule for appointment with neurologist. Thank you for allowing us to participate in your care, it was truly a pleasure having you for our patient!!! Discharge Disposition: HOME SELF-CARE
[2024-05-04 16:44] VITALS: BP 92/54; PULSE 75; RESP 19
[2024-05-04] MEDS ORDERED: RIVAROXABAN 20 MG TAB PO SCH (21:00)
[2024-05-04] MEDS ORDERED: levETIRAcetam 500 MG TAB PO SCH (21:00)
--- NOTE | 2024-05-05 03:12 | EEG ---
ELECTROENCEPHALOGRAM REPORT PREAMBLE: This is a 63-year-old female with acute episode of confusion and loss of memory. CURRENT MEDICATIONS: 1. Aspirin. 2. Farxiga. 3. Xarelto. 4. Betapace. 5. Aldactone. 6. Effexor. EEG FINDINGS: This is a 21-channel digital EEG recorded with video component, utilizing 10/20 international system with referential and bipolar montages. Background consists of well-developed, well-regulated moderate voltage activity in 8 Hz alpha. Background is posterior dominant and reactive to eye opening and closing. Some photic driving response was seen with some flash frequencies; however, during very early part and during photic stimulation, some dysrhythmic, high-amplitude mixed delta and theta activity with sharp-appearing waves was seen in the left temporal region. During rest of the study, there were frequent movement artifacts seen. However, sharp waves were not seen clearly in the later part of the study. No electrographic seizure was recorded. IMPRESSION: This is a borderline abnormal study, due to the presence of focal dysrhythmic slowing and sharp waves seen over the left temporal region, but only during very early part of the study and during photic stimulation. This was not reproduced in the later 2/3 part of the study. Overall study was technically limited because of frequent movement artifact. Focal sharp waves may suggest underlying cortical irritability. Recommend prolonged EEG for further evaluation because this study was technically limited. Clinical correlation also recommended. ALEJANDRA / HOLLIE: [id number] /
--- NOTE | 2024-05-06 10:48 | P.CNNES ---
History of Present Illness Consult date: 05/04/24 Requesting physician: Lu Rebolledo Reason for Consult: transient encephalopathy, possible tia History of Present Illness: Patient is a 63-year-old right-handed female came to the hospital by ambulance yesterday at 4:36 PM for recurrent spells. Patient states that she has been under a lot of mental more that any physical stress from some family situations. She also has been working a lot, cleaning up her in-laws estate, which is on sale. She has been painting the house. Patient apparently was talking to her , while painting at 2:30 to 3 PM yesterday afternoon, when she suddenly she started talking gibberish, not making sense. The next thing she remembers is that she woke up in the ER. She does not remember the EMS at home or the EMS ride to the hospital. Patient's was also present by the bedside, who witnessed all of this event. He mentions that the day prior to the incident, patient slept straight from 11 PM to 2 PM when she woke up. She slept for 15 hours. When she woke up, she was somewhat feeling slow, and her face was white, and did not look good. However she was still speaking clearly. However at around 2:30- 3 PM, she started talking clearly, but did not make sense. Patient was saying something but he could not understand. All the time when the EMS arrived, and during the EMS right, patient was smiling, but confused, disoriented. She could not tell t he president, or her birthday. As per EMS flowsheet, when they arrived, patient was sitting upright in the chair in the garage. Patient was alert and oriented and in no obvious distress noted. 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 The patient's stated that patient was confused with repetitive questioning prior to EMS arrival. The patient was answering all questions appropriately at this time. Patient has history of atrial fibrillation, open heart surgery, pacemaker/defibrillator, hypertension and breast cancer. EKG showed normal sinus rhythm. Patient's vitals were blood pressure 116/60, pulse rate 75 respiration 18 saturation 98%. GCS 15, blood sugar 159. Vitals has been stable in the hospital. Blood test shows normal WBC and hemoglobin. PT PTT normal, sodium 134, normal renal, troponin. Ammonia less than 9. AST 71, ALT is 55. Both mildly elevated. Troponin negative. UA negative. Urine drug screen positive for marijuana. Blood alcohol level negative. EKG showed uncertain regular rhythm. CT head showed no acute intracranial hemorrhage, mass effect or midline shift. I personally reviewed CT head, agree with the findings. Patient also had CTA of head and neck, and on my review of CTA of the head, there is no abnormal mass lesion noted. Otherwise CTA of head and neck revealed no evidence of hemodynamically significant stenosis at the carotid bifurcations. No significant diameter reduction to account for the patient's symptoms. No evidence for intracranial aneurysm or high-grade stenos is. Chest x-ray showed no evidence for acute pulmonary disease. Patient mentions that since she has arrived to the hospital, she had 4 stereotypical episodes, in which she gets a nauseous feeling, a feeling that she "feels it coming on" and then she gets disoriented, does not feel good. When she is talking during this spell, it is not making sense. She is not having any posturing, or automatisms or lip smacking, or twitching or convulsive activity that her has noticed during these events. These episodes last for about 1-2 minutes. The most recent event occurred 10 minutes ago prior to my arrival. Patient states that in February 2024 she had a similar spell as well when she was working and she had a nauseous sensation and then she stopped making sense while talking but it lasted only for a minute. Apparently the episode that brought to the hospital was the worst and she does not remember having any nauseous feeling prior. Home medication clued Xarelto 15 mg, Jardiance, Effexor, Betapace, Entresto, Aldactone, calcium. Patient states she has been on Xarelto for more than a month, and is very compliant, does not miss a dose. Patient has history of early stage breast cancer in 2000 for which she underwent lumpectomy followed by chemotherapy. No radiation therapy required. Patient from chemotherapy developed mitral valve disease, which was repaired at first and then replaced. Patient currently vapes for the last 2 years. Prior to that, she has smoked 1 pack per day for 15 years. She also smokes marijuana. Denies change in the brand or source of marijuana. She gets it from the dispensary. Review of Systems All pertinent positive and negative review of systems mentioned the HPI. Otherwise unremarkable. Past Medical History Past Medical History: Atrial Fibrillation Additional Past Medical History / Comment(s): Breast cancer, open heart, and defibrillator History of Any Multi-Drug Resistant Organisms: None Reported Past Surgical History: Hysterectomy Additional Past Surgical History / Comment(s): Open heart surgery Past Psychological History: No Psychological Hx Reported Smoking Status: Vaper Past Alcohol Use History: Occasional Past Drug Use History: Marijuana Medications and Allergies Home Medications Medication Instructions Recorded Confirmed Type Calcium Carbonate [Calcium] 600 mg PO HS 05/03/24 05/03/24 History Empagliflozin [Jardiance] 10 mg PO DAILY 05/03/24 05/03/24 History Inulin/Chromium Picolinate [Fiber 1 tab PO DAILY 05/03/24 05/03/24 History Gummies Chew] Rivaroxaban [Xarelto] 15 mg PO HS 05/03/24 05/03/24 History Sacubitril/Valsartan [Entresto 24 1 tab PO BID 05/03/24 05/03/24 History mg-26 mg Tablet] Sotalol [Betapace] 80 mg PO BID 05/03/24 05/03/24 History Spironolactone [Aldactone] 25 mg PO DAILY 05/03/24 05/03/24 History Venlafaxine HCl [Effexor XR] 75 mg PO DAILY 05/03/24 05/03/24 History levETIRAcetam [Keppra] 500 mg PO Q12HR 90 Days #180 tab 05/04/24 Rx Allergies Allergy/AdvReac Type Severity Reaction Status Date / Time acetaminophen AdvReac Unknown Verified 05/03/24 19:42 [From Darvocet-N] ibuprofen AdvReac Nausea & Verified 05/03/24 19:42 Vomiting propoxyphene AdvReac Unknown Verified 05/03/24 19:42 [From Darvocet-N] Physical Examination - Vital Signs Vital Signs: Vital Signs Temp Pulse Resp BP Pulse Ox 05/04/24 10:22 77 18 104/62 98 05/04/24 10:00 77 18 104/62 97 05/04/24 06:15 98.1 F 75 18 100/56 96 05/04/24 05:00 74 96 05/04/24 04:00 73 05/03/24 23:58 99.5 F 76 17 109/64 97 05/03/24 20:05 98.4 F 77 16 105/68 99 05/03/24 18:33 77 18 114/72 99 05/03/24 16:39 98.8 F 78 18 98/67 97 Intake and Output 05/03/24 05/04/24 05/04/24 22:59 06:59 14:59 Other: Weight 54.431 kg Patient is a late middle aged female, very pleasant, in no acute distress. Patient is alert awake oriented to time place and person. Speech and language functions are normal. Patient can name and repeat very well. No aphasia or dysarthria. Attention, concentration and fund of knowledge is adequate. On cranial nerve examination, pupils are equal, round and reacting to light, visual flores are full on confrontation, with no neglect on double simultaneous stimulation. Extraocular muscles are intact with no nystagmus. Face is symmetric, tongue protrudes to the midline. Palatal elevation and sensation normal, hearing and shoulder shrug normal, facial sensation normal. On muscle strength testing, there is no pronator drift and the strength is normal in arms and legs distally and proximally. Deep tendon reflexes are symmetric and trace in the upper limbs at biceps and brachioradialis, trace at the knees, 0 ankles and plantars downgoing bilaterally. Sensory to touch is equal with no neglect on double simultaneous stimulation. Cerebellar function showed no ataxia for [id number] testing. No dysdiadochokinesia. No ataxia for [id number] testing on either side. Tone and bulk of muscles normal. Gait deferred.. On general examination, there is no carotid bruit or murmur, S1-S2 audible. Chest is clear on consultation. Abdomen is soft nontender. No organomegaly, bowel sounds present. Peripheral pulses are present. No peripheral edema. Results - Laboratory Findings CBC and BMP: 05/04/24 07:05 05/04/24 07:05 Abnormal Lab Findings: Abnormal Labs 05/03/24 05/03/24 05/03/24 18:07 18:07 19:25 WBC 11.8 H RBC 3.79 L Neutrophils # 10.4 H Lymphocytes # 0.9 L Sodium 134 L BUN 22 H AST 71 H ALT 55 H Urine Glucose (UA) 4+ H Urine Ketones Trace H Urine Blood Trace H Urine Mucus Rare H U Marijuana (THC) Screen Detected H 05/04/24 05/04/24 07:05 07:05 WBC RBC 3.68 L Neutrophils # Lymphocytes # Sodium 135 L BUN 21 H AST ALT Urine Glucose (UA) Urine Ketones Urine Blood Urine Mucus U Marijuana (THC) Screen Assessment and Plan Assessment: * Recurrent, stereotypical spells, consisting of nauseous feeling and then patient starts talking, not making sense and looses memory for 1-2 minutes. Events are quite suspicious for complex partial seizures. However the episode that resulted in admission to the hospital was the most intense and prolonged lasted for more than 45 minutes. No associated automatisms, posturing or convulsive activity noticeable during these events. TIA is also in the diff erential, but is less likely because of being stereotypical in nature, and patient has been on Xarelto, and compliant with medication. * Vapes tobacco * Prior history of tobacco use * Marijuana use * Atrial fibrillation, on Xarelto. * Presence of pacemaker/defibrillator * History of early stage breast cancer 2000, in remission Plan: * Patient's events are suspicious for complex partial seizures. * EEG was performed, which was borderline abnormal study due to presence of foc al dysrhythmic slowing and sharp waves seen over the left temporal region but only during very early part of the study and during photic stimulation. This was not reproduced in the later 2/3rd part of the study. Overall study was technically limited because of frequent movement artifact as well. Focal sharp waves may suggest underlying cortical irritability. Recommend prolonged EEG for further evaluation because this study was technically limited. * Patient cannot have MRI because of presence of defibrillator. * As patient is having recurrent spells, we will start patient empirically on Keppra. Patient will receive Keppra 1000 mg IV 1 dose followed by 500 mg twice a day. * We recommended patient to stay overnight to make sure she is doing well with Keppra, and not having any more spells. However patient was adamant that she wants to go home, and she has some family member, who is a nurse and would watch her closely. * Patient being discharged on Keppra 500 mg twice a day. Recommend patient follow up with neurologist within 1-2 weeks. * Also inform patient of [place] state law of no driving unless seizure free for 6 months, climbing ladders, operating dangerous machinery or unsupervised swimming. * * Continue Xarelto at the recommended dose for atrial fibrillation. * Recommend abstinence from vaping and marijuana. * Neurologically clear for discharge. Discussed with primary physician in detail. * Thank you for the consult. Time with Patient: Greater than 30
== END 2024-05-04 16:53 | disposition home or self-care (01) ==
LOC: EC 16:36 → 6NMEDSUR 22:16
PROVIDERS: ADMIT Internal Medicine; ATTEND Internal Medicine
DX: G40.909 Epilepsy, unspecified, not intractable, without status epilepticus (principal); I48.0 Paroxysmal atrial fibrillation; I42.7 Cardiomyopathy due to drug and external agent; Z92.21 Personal history of antineoplastic chemotherapy; I08.1 Rheumatic disorders of both mitral and tricuspid valves; R74.01 Elevation of levels of liver transaminase levels; D72.829 Elevated white blood cell count, unspecified; F12.90 Cannabis use, unspecified, uncomplicated; F17.290 Nicotine dependence, other tobacco product, uncomplicated; Z79.84 Long term (current) use of oral hypoglycemic drugs; Z79.01 Long term (current) use of anticoagulants; Z79.899 Other long term (current) drug therapy; Z88.5 Allergy status to narcotic agent; Z88.6 Allergy status to analgesic agent; Z85.3 Personal history of malignant neoplasm of breast; Z95.810 Presence of automatic (implantable) cardiac defibrillator; Z95.3 Presence of xenogenic heart valve
CPT/HCPCS: 96361 ×2; 96374; 99285; 36415; 95816; 93005; 93306; 80061; 80053; 80048; 82140; 84484; 85025 ×2; 85610; 85730; 81001; 80306; 80320; 71046; 70496; 70450; 70498; G0378 ×2; J1953; Q9967